=== PATIENT | female | born 1935 | race Caucasian/White ===

== ENCOUNTER 2017-04-17 09:18 | Emergency (ER) | payer MEDICARE ==
[~2017-04-17] VITALS: Ht 160 cm; Wt 68.0 kg
[~2017-04-17 09:18] MED LIST: ALPR0.25 PO; ESCI10TA PO; PRAV10TA2 PO; SULF1TAB24 PO
[2017-04-17] MEDS ORDERED: ACETAMINOPHEN 325 MG TABLET PO ONE (10:00)
[2017-04-17] MEDS ORDERED: ACETAMINOPHEN 325 MG TABLET ONE (10:11)
[2017-04-17 11:07] VITALS: BP 149/69
== END 2017-04-17 11:32 | disposition home or self-care (01) ==
LOC: ED 10:49
DX: S82.65XA Nondisplaced fracture of lateral malleolus of left fibula, initial encounter for closed fracture (principal); W01.0XXA Fall on same level from slipping, tripping and stumbling without subsequent striking against object, initial encounter; Y93.01 Activity, walking, marching and hiking; Y92.89 Other specified places as the place of occurrence of the external cause; Y99.9 Unspecified external cause status
CPT/HCPCS: 29515; 99284

== ENCOUNTER 2017-04-18 16:59 | Inpatient (IN) | payer MEDICARE ==
[~2017-04-18] VITALS: Ht 162.6 cm; Wt 71.9 kg
[2017-04-18] MEDS ORDERED: SODIUM CHLORIDE FLUSH 10ML SYR IVF ONE (18:30)
[2017-04-18 18:39] LABS: HEMOGLOBIN 12.8 g/dL (11.7-16.4); WHITE BLOOD COUNT 8.7 x10^3/uL (3.4-10)
[2017-04-18 18:50] LABS: ASPARTATE AMINO TRANSFERASE 23 U/L (15-37); BLOOD UREA NITROGEN 15 mg/dL (7-18)
[2017-04-18] MEDS ORDERED: ACETAMINOPHEN 325 MG TABLET PO ONE (20:00)
[2017-04-18] MEDS ORDERED: ACETAMINOPHEN 325 MG TABLET ONE (20:07)
[2017-04-18] MEDS ORDERED: SODIUM CHLORIDE FLUSH 10ML SYR IVF PRN (20:30)
[2017-04-18] MEDS ORDERED: ONDANSETRON ODT 4 MG PO PRN (21:00)
[2017-04-18] MEDS: ENOXAPARIN 40 MG/0.4 ML SQ SCH (21:00)
[2017-04-18] MEDS ORDERED: TEMPLATE NON-FORMULARY MED. (Escitalopram Oxalate** 10 MG) HOMEMEDPO SCH (21:00)
[2017-04-18 22:56] VITALS: BP 162/66
[2017-04-18] MEDS ORDERED: CITALOPRAM 20 MG TABLET PO SCH (23:15)
[2017-04-19] MEDS: TRAZODONE 50MG TABLET PO PRN ×2 (00:11→21:42)
[2017-04-19] MEDS: PRAVASTATIN 20 MG TABLET PO SCH ×2 (00:11→21:13)
[2017-04-19 01:22] VITALS: BP 154/68
[2017-04-19 05:45] LABS: HEMATOCRIT 34.5 % (34.6-47.8); HEMOGLOBIN 11.8 g/dL (11.7-16.4); WHITE BLOOD COUNT 7.1 x10^3/uL (3.4-10)
[2017-04-19 06:02] LABS: BLOOD UREA NITROGEN 16 mg/dL (7-18)
[2017-04-19 07:20] VITALS: BP 131/64
[2017-04-19] MEDS: SENNA/DOCUSATE TABLET PO SCH (09:13)
[2017-04-19] MEDS: ACETAMINOPHEN 325 MG TABLET PO PRN ×2 (12:32→21:14)
[2017-04-19] MEDS: CEFTRIAXONE PMX 1GM/50ML 50 ML IV SCH (12:33)
[2017-04-19 12:39] VITALS: BP 117/80
[2017-04-19 20:22] VITALS: BP 127/63
[2017-04-19] MEDS: ENOXAPARIN 40 MG/0.4 ML SQ SCH (21:00)
[2017-04-20 01:39] VITALS: BP 117/58
[2017-04-20 05:47] LABS: HEMOGLOBIN 12.1 g/dL (11.7-16.4); WHITE BLOOD COUNT 6.3 x10^3/uL (3.4-10)
[2017-04-20 06:07] VITALS: BP 115/69
[2017-04-20 06:08] LABS: ASPARTATE AMINO TRANSFERASE 17 U/L (15-37); BLOOD UREA NITROGEN 11 mg/dL (7-18)
[2017-04-20] MEDS: SENNA/DOCUSATE TABLET PO SCH (08:54)
[2017-04-20] MEDS: VENLAFAXINE 75MG TABLET PO SCH (09:00)
[2017-04-20] MEDS: CEFTRIAXONE PMX 1GM/50ML 50 ML IV SCH (13:29)
[2017-04-20] MEDS: ACETAMINOPHEN 325 MG TABLET PO PRN (13:43)
[2017-04-20 14:00] VITALS: BP 125/65
[2017-04-20 20:21] VITALS: BP 112/70
[2017-04-20] MEDS: ENOXAPARIN 40 MG/0.4 ML SQ SCH ×2 (20:30→21:36)
[2017-04-20] MEDS: TRAZODONE 50MG TABLET PO PRN (21:35)
[2017-04-20] MEDS: PRAVASTATIN 20 MG TABLET PO SCH (21:36)
[2017-04-21 02:51] VITALS: BP 121/86
[2017-04-21 06:06] LABS: HEMATOCRIT 37.2 % (34.6-47.8); HEMOGLOBIN 12.5 g/dL (11.7-16.4); WHITE BLOOD COUNT 6.1 x10^3/uL (3.4-10)
[2017-04-21 06:12] LABS: BLOOD UREA NITROGEN 16 mg/dL (7-18)
[2017-04-21 06:15] LABS: ASPARTATE AMINO TRANSFERASE 19 U/L (15-37)
[2017-04-21 07:46] VITALS: BP 102/67
[2017-04-21] MEDS: VENLAFAXINE 75MG TABLET PO SCH (08:29)
[2017-04-21] MEDS: SENNA/DOCUSATE TABLET PO SCH (08:29)
[2017-04-21] MEDS: ACETAMINOPHEN 325 MG TABLET PO PRN ×2 (13:01→17:57)
[2017-04-21] MEDS: CEFTRIAXONE PMX 1GM/50ML 50 ML IV SCH (13:03)
[2017-04-21 14:00] VITALS: BP 124/74
[2017-04-21] MEDS: PRAVASTATIN 20 MG TABLET PO SCH (20:23)
[2017-04-21] MEDS: ENOXAPARIN 40 MG/0.4 ML SQ SCH (20:24)
[2017-04-21 20:28] VITALS: BP 134/83
[2017-04-22 01:41] VITALS: BP 121/71
[2017-04-22 05:34] LABS: HEMATOCRIT 34.8 % (34.6-47.8); HEMOGLOBIN 11.9 g/dL (11.7-16.4); WHITE BLOOD COUNT 5.5 x10^3/uL (3.4-10)
[2017-04-22 05:36] LABS: BLOOD UREA NITROGEN 16 mg/dL (7-18)
[2017-04-22 06:42] VITALS: BP 139/79
[2017-04-22] MEDS: SENNA/DOCUSATE TABLET PO SCH (08:39)
[2017-04-22] MEDS: VENLAFAXINE 75MG TABLET PO SCH (08:41)
[2017-04-22] MEDS ORDERED: CEFD300C37 PO (09:51)
[2017-04-22] MEDS ORDERED: VENL75TA PO (09:51)
[2017-04-22] MEDS: ACETAMINOPHEN 325 MG TABLET PO PRN (12:40)
[2017-04-22] MEDS: CEFTRIAXONE PMX 1GM/50ML 50 ML IV SCH (13:00)
[2017-04-22 15:14] VITALS: BP 134/72
== END 2017-04-22 15:43 | DRG 564 ==
LOC: ED 17:54 → EDIP 20:21 → 3NE 23:10
PROVIDERS: ADMIT Internal Medicine; ATTEND Internal Medicine
DX: M21.952 Unspecified acquired deformity of left thigh (principal); R53.2 Functional quadriplegia; F03.90 Unspecified dementia, unspecified severity, without behavioral disturbance, psychotic disturbance, mood disturbance, and anxiety; I50.32 Chronic diastolic (congestive) heart failure; N39.0 Urinary tract infection, site not specified; S82.62XA Displaced fracture of lateral malleolus of left fibula, initial encounter for closed fracture; E78.00 Pure hypercholesterolemia, unspecified; F32.9 Major depressive disorder, single episode, unspecified; G89.11 Acute pain due to trauma; M79.605 Pain in left leg; H53.2 Diplopia; F41.9 Anxiety disorder, unspecified; W18.39XA Other fall on same level, initial encounter; Z66 Do not resuscitate; E78.5 Hyperlipidemia, unspecified; Z96.652 Presence of left artificial knee joint; Z80.1 Family history of malignant neoplasm of trachea, bronchus and lung; Z87.891 Personal history of nicotine dependence; Z91.81 History of falling; Z82.0 Family history of epilepsy and other diseases of the nervous system; Z88.0 Allergy status to penicillin; Y93.89 Activity, other specified; Y92.89 Other specified places as the place of occurrence of the external cause; Y99.8 Other external cause status; I25.2 Old myocardial infarction; R53.1 Weakness
CPT/HCPCS: 36415; 80048; 80053; 81001; 82040; 83735; 85025; 87086; J0696; J1650

== ENCOUNTER 2017-09-18 10:43 | Inpatient (IN) | payer MEDICARE ==
[~2017-09-18] VITALS: Ht 162.6 cm; Wt 59.6 kg
[~2017-09-18 10:43] MED LIST changes: +CEFD300C37 PO; +VENL75TA PO
[2017-09-18 12:00] LABS: BASOPHILS # (AUTO) 0.01 x10^3/uL (0-0.1); BASOPHILS % (AUTO) 0 % (0-1); EOSINOPHILS # (AUTO) 0.05 x10^3/uL (0-0.4); EOSINOPHILS % (AUTO) 1 % (1-7); LYMPHOCYTES # (AUTO) 1.08 x10^3/uL (1-3.4); LYMPHOCYTES % (AUTO) 20 % (22-44); MD NO; MEAN CORPUSCULAR HEMOGLOBIN 32.2 pg (27.0-34.8); MEAN CORPUSCULAR VOLUME 94.9 fL (80-100); MEAN PLATELET VOLUME 8.3 fL (7.4-10.4); MONOCYTES # (AUTO) 0.32 x10^3/uL (0.2-0.8); MONOCYTES % (AUTO) 6 % (2-9); NEUTROPHILS # (AUTO) 3.83 x10^3/uL (1.8-6.8); NEUTROPHILS % (AUTO) 72 % (42-75); PLATELET COUNT 273 x10^3/uL (130-400); RED BLOOD COUNT 4.07 x10^6/uL (3.82-5.3); RED CELL DISTRIBUTION WIDTH 13.3 % (9.6-15.2)
[2017-09-18 12:13] LABS: ALANINE AMINOTRANSFERASE 24 U/L (12-78); ALBUMIN 3.6 g/dL (3.4-5.0); ANION GAP 7 mmol/L (5-15); CALCIUM 8.7 mg/dL (8.5-10.1); CHLORIDE 110 mmol/L (98-107); CREATININE 0.69 mg/dL (0.55-1.02)
[2017-09-18 12:17] LABS: ALKALINE PHOSPHATASE 92 U/L (45-117); BILIRUBIN,TOTAL 0.3 mg/dL (0.2-1.0); TOTAL PROTEIN 6.8 g/dL (6.4-8.2); TROPONIN I < 0.015 ng/mL (0.000-0.045)
[2017-09-18] MEDS ORDERED: ACETAMINOPHEN 325 MG TABLET ONE (13:26)
[2017-09-18] MEDS ORDERED: ACETAMINOPHEN 325 MG TABLET PO ONE (13:30)
[2017-09-18 14:03] LABS: MICROSCOPIC INDICATED
[2017-09-18 14:04] LABS: CULTURE INDICATED? YES
[2017-09-18 14:15] VITALS: BP 141/87
[2017-09-18] MEDS ORDERED: CEFDINIR 300 MG CAPSULE PO STA (14:18)
[2017-09-18] MEDS ORDERED: CEFDINIR 300 MG CAPSULE ONE (14:28)
[2017-09-18] MEDS ORDERED: LORazepam 2 MG/ML, 1ML IVPush ONE (14:30)
[2017-09-18] MEDS ORDERED: LORazepam 2 MG/ML, 1ML ONE (14:41)
[2017-09-18] MEDS ORDERED: GADOBUTROL 7.5 MMOL/7.5 ML PFS ONE (15:17)
[2017-09-18] MEDS ORDERED: POLYETHYLENE GLYCOL 17 GM PACKET PO PRN (15:30)
[2017-09-18] MEDS ORDERED: ONDANSETRON 2MG/ML, 2ML IVPush PRN (15:30)
[2017-09-18] MEDS ORDERED: hydrALAzine 20 MG/ML, 1ML IVPush PRN (15:30)
[2017-09-18] MEDS ORDERED: DOCUSATE 100 MG CAPSULE PO PRN (15:30)
[2017-09-18] MEDS ORDERED: ACETAMINOPHEN 325 MG TABLET PO PRN (15:30)
[2017-09-18] MEDS ORDERED: MELA10CA PO (16:13)
[2017-09-18] MEDS ORDERED: TRAZ100T15 PO (16:13)
[2017-09-18 16:15] VITALS: BP 141/87
[2017-09-18] MEDS: SODIUM CHLORIDE 0.9% 1,000 ML IV SCH (17:00)
[2017-09-18 19:14] VITALS: BP 145/68
[2017-09-18] MEDS ORDERED: TRAZODONE 100MG TABLET PO PRN (23:30)
[2017-09-19 02:00] VITALS: BP 131/69
[2017-09-19] MEDS: SODIUM CHLORIDE 0.9% 1,000 ML IV SCH (03:20)
[2017-09-19 05:15] LABS: ANION GAP 5 mmol/L (5-15); CALCIUM 8.7 mg/dL (8.5-10.1); CHLORIDE 111 mmol/L (98-107)
[2017-09-19 05:27] LABS: CREATININE 0.64 mg/dL (0.55-1.02)
[2017-09-19] MEDS ORDERED: ASPIRIN 325 MG TABLET EC PO SCH (06:00)
[2017-09-19 07:57] VITALS: BP 167/87
== END 2017-09-19 14:44 | disposition home or self-care (01) | DRG 552 ==
LOC: ED 13:28 → EDIP 13:29 → ED 13:55 → 3NE 15:44
PROVIDERS: ADMIT Hospitalist; ATTEND Hospitalist
DX: M54.2 Cervicalgia (principal); I50.30 Unspecified diastolic (congestive) heart failure; N39.0 Urinary tract infection, site not specified; W18.39XA Other fall on same level, initial encounter; E78.00 Pure hypercholesterolemia, unspecified; W18.30XA Fall on same level, unspecified, initial encounter; M46.90 Unspecified inflammatory spondylopathy, site unspecified; M51.37 Other intervertebral disc degeneration, lumbosacral region; M85.80 Other specified disorders of bone density and structure, unspecified site; R29.6 Repeated falls; Z80.1 Family history of malignant neoplasm of trachea, bronchus and lung; Z82.0 Family history of epilepsy and other diseases of the nervous system; I25.2 Old myocardial infarction; Z91.81 History of falling; Z88.0 Allergy status to penicillin; Z88.5 Allergy status to narcotic agent; Z88.8 Allergy status to other drugs, medicaments and biological substances; Y93.89 Activity, other specified; Y92.89 Other specified places as the place of occurrence of the external cause
CPT/HCPCS: 36415; 70450; 70553; 72020; 72050; 72110; 80048; 80053; 81001; 83605; 83735; 84100; 84443; 84484; 85025; 87086; 93005; 99285; A9585; J2060; J7030

== ENCOUNTER 2018-03-28 10:42 | Emergency (ER) | payer MEDICARE ==
[~2018-03-28] VITALS: Ht 160 cm; Wt 50.0 kg
[~2018-03-28 10:42] MED LIST changes: +ACET-1600 PO; +CARB15DR5 EACHEYE; +CITA10TA8 PO; +DIVA500T17 PO; +FLUT15.88 NS; +LIDO700A20 TD; +MELA10CA PO; +MULT-257 PO; +TRAZ-137 PO
[2018-03-28] MEDS ORDERED: LIDOCAINE-MPF 1%, 5ML ONE (11:44)
[2018-03-28] MEDS ORDERED: LIDOCAINE 2%, 20ML SQ ONE (12:00)
[2018-03-28 13:03] VITALS: BP 151/79
== END 2018-03-28 13:05 | disposition home or self-care (01) ==
LOC: ED 12:41
DX: S01.01XA Laceration without foreign body of scalp, initial encounter (principal); I25.2 Old myocardial infarction; F32.9 Major depressive disorder, single episode, unspecified; E78.00 Pure hypercholesterolemia, unspecified; I95.9 Hypotension, unspecified; Z88.5 Allergy status to narcotic agent; Z88.8 Allergy status to other drugs, medicaments and biological substances; Z88.0 Allergy status to penicillin; W19.XXXA Unspecified fall, initial encounter; Y93.89 Activity, other specified; Y92.89 Other specified places as the place of occurrence of the external cause; Y99.8 Other external cause status
CPT/HCPCS: 12001; 70450; 99284